=== PATIENT | male | born 1990 | race Caucasian/White ===

== ENCOUNTER 2017-11-04 09:06 | Emergency (ER) | payer MEDICAID, OTHER ==
[2017-11-04 09:09] VITALS: BP 124/78
[2017-11-04] MEDS ORDERED: DIPH,PERTUSS(ACELL),TET VAC/PF 0.5 ML IM-VACC ONE ×2 (10:00→10:16)
[2017-11-04 10:08] LABS: BASOPHILS % (AUTO) 1 % (0-1); EOSINOPHILS # (AUTO) 0.09 x10^3/uL (0-0.4); EOSINOPHILS % (AUTO) 1 % (1-7); LYMPHOCYTES # (AUTO) 0.93 x10^3/uL (1-3.4); LYMPHOCYTES % (AUTO) 7 % (22-44); MD NO; MEAN CORPUSCULAR HGB CONC 34.9 g/dL (33.2-36.2); MEAN CORPUSCULAR VOLUME 97.5 fL (81-97); MEAN PLATELET VOLUME 8.4 fL (7.4-10.4); MONOCYTES # (AUTO) 0.43 x10^3/uL (0.2-0.8); MONOCYTES % (AUTO) 3 % (2-9); NEUTROPHILS % (AUTO) 88 % (42-75); PLATELET COUNT 286 x10^3/uL (130-400); RED CELL DISTRIBUTION WIDTH 12.5 % (9.4-14.8)
[2017-11-04 10:14] LABS: ALBUMIN 3.4 g/dL (3.4-5.0); ANION GAP 7 mmol/L (5-15); CALCIUM 8.3 mg/dL (8.5-10.1); CHLORIDE 107 mmol/L (98-107); CREATININE 0.97 mg/dL (0.7-1.3)
[2017-11-04] MEDS ORDERED: AMOXICILLIN/CLAV 875-125MG TABLET ONE (10:15)
[2017-11-04] MEDS ORDERED: AMOXICILLIN/CLAV 875-125MG TABLET PO ONE (10:30)
[2017-11-04] MEDS ORDERED: HYDROcodone/APAP 5/325 TABLET ONE (10:33)
[2017-11-04] MEDS ORDERED: BACITRACIN ZINC OINT 500U/GM, 0.9 GM ONE (10:51)
[2017-11-04] MEDS ORDERED: HYDROcodone/APAP 5/325 TABLET PO ONE (11:00)
== END 2017-11-04 11:05 | disposition home or self-care (01) ==
LOC: ED 10:59
DX: S61.214A Laceration without foreign body of right ring finger without damage to nail, initial encounter (principal); F17.210 Nicotine dependence, cigarettes, uncomplicated; Z90.89 Acquired absence of other organs; Y04.0XXA Assault by unarmed brawl or fight, initial encounter; Y93.89 Activity, other specified; Y99.8 Other external cause status; Y92.009 Unspecified place in unspecified non-institutional (private) residence as the place of occurrence of the external cause
CPT/HCPCS: 29130; 36415; 80048; 82040; 85025; 90471; 90715; 99285

== ENCOUNTER 2017-11-05 12:47 | Inpatient (IN) | payer MEDICAID, OTHER ==
[~2017-11-05] VITALS: Ht 185.4 cm; Wt 100.0 kg
[2017-11-05 13:28] LABS: MD YES; MEAN CORPUSCULAR HEMOGLOBIN 33.2 pg (27.5-34.5); MEAN CORPUSCULAR HGB CONC 34.1 g/dL (33.2-36.2); MEAN CORPUSCULAR VOLUME 97.3 fL (81-97); MEAN PLATELET VOLUME 8.6 fL (7.4-10.4); PLATELET COUNT 262 x10^3/uL (130-400); RED BLOOD COUNT 4.48 x10^6/uL (4.38-5.82); RED CELL DISTRIBUTION WIDTH 12.6 % (9.4-14.8)
[2017-11-05 13:46] LABS: <PLATELET ESTIMATE> ADEQUATE; <PLT MORPHOLOGY> NORMAL PLT MORPH; <RBC MORPHOLOGY> NORMAL; BAND#(MANUAL) 0.19 x10^3/uL; BANDS%(MANUAL) 1 % (0-7); LYMPH#(MANUAL) 2.82 x10^3/uL (1-3.4); LYMPHS% (MANUAL) 15 % (22-44); MONOS#(MANUAL) 0.38 x10^3/uL (0.3-2.7); MONOS% (MANUAL) 2 % (2-9); SEG#(MANUAL) 15.42 x10^3/uL (1.8-6.8); SEGS% (MANUAL) 82 % (42-75)
[2017-11-05] MEDS ORDERED: SODIUM CHLORIDE FLUSH 10ML SYR IVF ONE (14:00)
[2017-11-05] MEDS ORDERED: AMPICILLIN/SULBACTAM 3 GM in SODIUM CHLORIDE 0.9% 100 ML IV ONE (14:00)
[2017-11-05] MEDS: AMPICILLIN/SULBACTAM 3 GM in SODIUM CHLORIDE 0.9% 100 ML IV SCH ×2 (14:30→21:10)
[2017-11-05] MEDS ORDERED: VANCOMYCIN PER PHARMACY MC PRN (14:30)
[2017-11-05] MEDS ORDERED: BACITRACIN ZINC OINT 500U/GM, 0.9 GM ONE (14:32)
[2017-11-05] MEDS ORDERED: morphine SULFATE 10 MG/ML, 1ML IVPush PRN (15:00)
[2017-11-05] MEDS ORDERED: LORazepam 1MG TABLET PO PRN (15:00)
[2017-11-05] MEDS ORDERED: LORazepam 2 MG/ML, 1ML IVPush PRN (15:00)
[2017-11-05] MEDS ORDERED: ONDANSETRON 2MG/ML, 2ML IVPush PRN (15:00)
[2017-11-05] MEDS ORDERED: ACETAMINOPHEN 325 MG TABLET PO PRN (15:00)
[2017-11-05] MEDS ORDERED: ONDANSETRON ODT 4 MG PO PRN (15:00)
[2017-11-05] MEDS ORDERED: GADOBUTROL 10 MMOL/10 ML VIAL ONE (15:22)
[2017-11-05 16:30] VITALS: BP 126/80
[2017-11-05] MEDS ORDERED: PHARMACOKINETIC CONSULTATION MC ONE (18:00)
[2017-11-05] MEDS ORDERED: PHARMACOKINETIC MONITORING MC PRN (18:00)
[2017-11-05] MEDS: NICOTINE 21 MG/24 HR PATCH.TD24 TD SCH (18:07)
[2017-11-05] MEDS: SODIUM CHLORIDE 0.9% 1,000 ML IV SCH (18:07)
[2017-11-05 19:51] VITALS: BP 113/72
[2017-11-05] MEDS: VANCOMYCIN 1,800 MG in SODIUM CHLORIDE 0.9% 250 ML IV SCH (22:15)
[2017-11-06] MEDS: AMPICILLIN/SULBACTAM 3 GM in SODIUM CHLORIDE 0.9% 100 ML IV SCH ×4 (03:20→20:58)
[2017-11-06 03:34] VITALS: BP 122/77
[2017-11-06 04:03] LABS: AMPHETAMINE SCREEN, URINE Positive (Negative); BARBITURATE SCREEN, URINE Negative (Negative); BENZODIAZEPINE SCREEN, URINE Negative (Negative); CANNABINOID SCREEN, URINE Positive (Negative); COCAINE SCREEN, URINE Negative (Negative); METHADONE SCREEN, URINE Negative (Negative); OPIATE SCREEN, URINE Negative (Negative)
[2017-11-06 04:58] LABS: BASOPHILS % (AUTO) 1 % (0-1); EOSINOPHILS # (AUTO) 0.14 x10^3/uL (0-0.4); EOSINOPHILS % (AUTO) 1 % (1-7); LYMPHOCYTES # (AUTO) 1.95 x10^3/uL (1-3.4); LYMPHOCYTES % (AUTO) 13 % (22-44); MD NO; MEAN CORPUSCULAR HEMOGLOBIN 34.1 pg (27.5-34.5); MEAN CORPUSCULAR HGB CONC 34.9 g/dL (33.2-36.2); MEAN CORPUSCULAR VOLUME 97.6 fL (81-97); MEAN PLATELET VOLUME 8.4 fL (7.4-10.4); MONOCYTES # (AUTO) 1.11 x10^3/uL (0.2-0.8); MONOCYTES % (AUTO) 8 % (2-9); NEUTROPHILS # (AUTO) 11.46 x10^3/uL (1.8-6.8); NEUTROPHILS % (AUTO) 78 % (42-75); PLATELET COUNT 253 x10^3/uL (130-400); RED BLOOD COUNT 4.22 x10^6/uL (4.38-5.82); RED CELL DISTRIBUTION WIDTH 12.7 % (9.4-14.8)
[2017-11-06 05:11] LABS: ALANINE AMINOTRANSFERASE 30 U/L (12-78); ALBUMIN 2.9 g/dL (3.4-5.0); ANION GAP 8 mmol/L (5-15); CALCIUM 8.3 mg/dL (8.5-10.1); CHLORIDE 107 mmol/L (98-107); CREATININE 0.75 mg/dL (0.7-1.3)
[2017-11-06 05:16] LABS: HCT (SEDRATE) 43.6 % (39.2-51.8)
[2017-11-06 05:38] LABS: ALKALINE PHOSPHATASE 65 U/L (45-117); BILIRUBIN,TOTAL 0.4 mg/dL (0.2-1.0); THYROID STIMULATING HORMONE 0.707 mIU/L (0.358-3.740); TOTAL PROTEIN 6.5 g/dL (6.4-8.2)
[2017-11-06] MEDS: SODIUM CHLORIDE 0.9% 1,000 ML IV SCH ×2 (05:39→17:06)
[2017-11-06 07:59] VITALS: BP 118/80
[2017-11-06] MEDS: FOLIC ACID 1 MG TABLET PO SCH (09:23)
[2017-11-06] MEDS: THIAMINE 100MG TABLET PO SCH (09:23)
[2017-11-06] MEDS: MULTIVITAMIN 1 TABLET PO SCH (09:23)
[2017-11-06] MEDS: VANCOMYCIN 1,800 MG in SODIUM CHLORIDE 0.9% 250 ML IV SCH ×2 (11:03→22:02)
[2017-11-06] MEDS: HYDROcodone/APAP 5/325 TABLET PO PRN ×3 (12:28→21:07)
[2017-11-06 13:32] VITALS: BP 109/57
[2017-11-06] MEDS: NICOTINE 21 MG/24 HR PATCH.TD24 TD SCH (17:07)
[2017-11-06 19:51] VITALS: BP 120/69
[2017-11-07 04:04] VITALS: BP 111/73
[2017-11-07] MEDS: HYDROcodone/APAP 5/325 TABLET PO PRN ×3 (04:06→14:57)
[2017-11-07] MEDS: AMPICILLIN/SULBACTAM 3 GM in SODIUM CHLORIDE 0.9% 100 ML IV SCH ×4 (04:08→21:39)
[2017-11-07 05:57] LABS: BASOPHILS # (AUTO) 0.04 x10^3/uL (0-0.1); BASOPHILS % (AUTO) 0 % (0-1); EOSINOPHILS # (AUTO) 0.24 x10^3/uL (0-0.4); EOSINOPHILS % (AUTO) 3 % (1-7); LYMPHOCYTES % (AUTO) 26 % (22-44); MD NO; MEAN CORPUSCULAR HEMOGLOBIN 33.4 pg (27.5-34.5); MEAN CORPUSCULAR HGB CONC 34.1 g/dL (33.2-36.2); MEAN CORPUSCULAR VOLUME 98.1 fL (81-97); MEAN PLATELET VOLUME 8.4 fL (7.4-10.4); MONOCYTES # (AUTO) 0.78 x10^3/uL (0.2-0.8); MONOCYTES % (AUTO) 9 % (2-9); NEUTROPHILS # (AUTO) 5.54 x10^3/uL (1.8-6.8); NEUTROPHILS % (AUTO) 62 % (42-75); PLATELET COUNT 249 x10^3/uL (130-400); RED CELL DISTRIBUTION WIDTH 12.7 % (9.4-14.8)
[2017-11-07] MEDS: SODIUM CHLORIDE 0.9% 1,000 ML IV SCH ×2 (06:33→22:58)
[2017-11-07 07:04] VITALS: BP 114/67
[2017-11-07] MEDS: MULTIVITAMIN 1 TABLET PO SCH (08:55)
[2017-11-07] MEDS: THIAMINE 100MG TABLET PO SCH (08:55)
[2017-11-07] MEDS: FOLIC ACID 1 MG TABLET PO SCH (08:56)
[2017-11-07] MEDS: VANCOMYCIN 1,800 MG in SODIUM CHLORIDE 0.9% 250 ML IV SCH ×2 (10:12→22:58)
[2017-11-07 14:02] VITALS: BP 112/64
[2017-11-07] MEDS: NICOTINE 21 MG/24 HR PATCH.TD24 TD SCH (18:00)
[2017-11-07 19:23] VITALS: BP 114/53
[2017-11-08] MEDS: AMPICILLIN/SULBACTAM 3 GM in SODIUM CHLORIDE 0.9% 100 ML IV SCH ×4 (03:31→21:32)
[2017-11-08 03:32] VITALS: BP 111/60
[2017-11-08] MEDS: HYDROcodone/APAP 5/325 TABLET PO PRN ×4 (04:31→21:38)
[2017-11-08 05:12] LABS: ANION GAP 7 mmol/L (5-15); CALCIUM 8.4 mg/dL (8.5-10.1); CHLORIDE 109 mmol/L (98-107); CREATININE 0.78 mg/dL (0.7-1.3)
[2017-11-08 05:18] LABS: BASOPHILS # (AUTO) 0.07 x10^3/uL (0-0.1); BASOPHILS % (AUTO) 1 % (0-1); EOSINOPHILS # (AUTO) 0.24 x10^3/uL (0-0.4); EOSINOPHILS % (AUTO) 3 % (1-7); LYMPHOCYTES % (AUTO) 30 % (22-44); MD NO; MEAN CORPUSCULAR HEMOGLOBIN 33.6 pg (27.5-34.5); MEAN CORPUSCULAR HGB CONC 34.5 g/dL (33.2-36.2); MEAN CORPUSCULAR VOLUME 97.5 fL (81-97); MEAN PLATELET VOLUME 8.8 fL (7.4-10.4); MONOCYTES % (AUTO) 8 % (2-9); NEUTROPHILS # (AUTO) 4.55 x10^3/uL (1.8-6.8); NEUTROPHILS % (AUTO) 59 % (42-75); PLATELET COUNT 297 x10^3/uL (130-400); RED CELL DISTRIBUTION WIDTH 12.7 % (9.4-14.8)
[2017-11-08 07:04] VITALS: BP 103/65
[2017-11-08] MEDS: THIAMINE 100MG TABLET PO SCH (09:09)
[2017-11-08] MEDS: MULTIVITAMIN 1 TABLET PO SCH (09:09)
[2017-11-08] MEDS: SODIUM CHLORIDE 0.9% 1,000 ML IV SCH ×2 (09:09→21:31)
[2017-11-08] MEDS: FOLIC ACID 1 MG TABLET PO SCH (09:09)
[2017-11-08] MEDS: VANCOMYCIN 1,800 MG in SODIUM CHLORIDE 0.9% 250 ML IV SCH ×2 (11:08→23:04)
[2017-11-08 14:36] VITALS: BP 119/71
[2017-11-08] MEDS: NICOTINE 21 MG/24 HR PATCH.TD24 TD SCH (18:00)
[2017-11-08 20:24] VITALS: BP 115/49
[2017-11-09 01:57] VITALS: BP 120/69
[2017-11-09] MEDS: HYDROcodone/APAP 5/325 TABLET PO PRN ×4 (02:27→19:33)
[2017-11-09] MEDS: AMPICILLIN/SULBACTAM 3 GM in SODIUM CHLORIDE 0.9% 100 ML IV SCH ×2 (03:38→08:40)
[2017-11-09 07:40] VITALS: BP 116/74
[2017-11-09] MEDS: THIAMINE 100MG TABLET PO SCH (08:41)
[2017-11-09] MEDS: SODIUM CHLORIDE 0.9% 1,000 ML IV SCH ×2 (08:41→20:58)
[2017-11-09] MEDS: MULTIVITAMIN 1 TABLET PO SCH (08:41)
[2017-11-09] MEDS: FOLIC ACID 1 MG TABLET PO SCH (08:41)
[2017-11-09] MEDS: VANCOMYCIN 1,800 MG in SODIUM CHLORIDE 0.9% 250 ML IV SCH (11:12)
[2017-11-09] MEDS ORDERED: CEFAZOLIN 1,000 MG IM SCH (13:30)
[2017-11-09 14:33] VITALS: BP 132/79
[2017-11-09] MEDS: NICOTINE 21 MG/24 HR PATCH.TD24 TD SCH (18:00)
[2017-11-09 19:10] VITALS: BP 135/69
[2017-11-09] MEDS: CEFAZOLIN PMX 2GM/50ML 50 ML IVPB SCH (20:58)
[2017-11-10 02:48] VITALS: BP 112/71
[2017-11-10] MEDS: CEFAZOLIN PMX 2GM/50ML 50 ML IVPB SCH (05:32)
[2017-11-10] MEDS: HYDROcodone/APAP 5/325 TABLET PO PRN ×2 (05:32→11:27)
[2017-11-10] MEDS: SODIUM CHLORIDE 0.9% 1,000 ML IV SCH (05:34)
[2017-11-10 07:12] VITALS: BP 116/75
[2017-11-10] MEDS ORDERED: CEPH-376 PO (08:36)
[2017-11-10] MEDS: MULTIVITAMIN 1 TABLET PO SCH (09:00)
[2017-11-10] MEDS ORDERED: CEPHALEXIN 250 MG CAPSULE ONE (10:11)
[2017-11-10] MEDS ORDERED: CEPHALEXIN 500 MG CAPSULE PO SCH (11:00)
[2017-11-10] MEDS: FOLIC ACID 1 MG TABLET PO SCH (11:22)
[2017-11-10] MEDS: THIAMINE 100MG TABLET PO SCH (11:22)
== END 2017-11-10 11:36 | disposition home or self-care (01) | DRG 871 ==
LOC: ED 14:38 → EDIP 14:39 → 4NOR 16:11 → ED 16:27 → UNDOFXERACCOM 16:30 → EDERBED 16:30 → UNDOFXERRRACCOM 16:30 → 4NOR 16:48 → ED 16:48
PROVIDERS: ADMIT Family Medicine; ATTEND Internal Medicine
DX: A41.9 Sepsis, unspecified organism (principal); E43 Unspecified severe protein-calorie malnutrition; L03.113 Cellulitis of right upper limb; F10.10 Alcohol abuse, uncomplicated; F11.10 Opioid abuse, uncomplicated; F15.10 Other stimulant abuse, uncomplicated; F17.210 Nicotine dependence, cigarettes, uncomplicated; Z59.0 Homelessness; S61.214A Laceration without foreign body of right ring finger without damage to nail, initial encounter; Z68.29 Body mass index [BMI] 29.0-29.9, adult; Y08.89XA Assault by other specified means, initial encounter
CPT/HCPCS: 36415; 80048; 80053; 80202; 80307; 82607; 82746; 84443; 85025; 85651; 86141; 87040; 87070; 87077; 87147; 87186; 87205; 99285; A9585; J0295; J0690; J3370; J7030; J7050